=== PATIENT | female | born 1990 | race Caucasian/White ===

== ENCOUNTER 2022-05-05 07:08 | Emergency (ER) | payer MEDICAID, SELFPAY ==
--- NOTE | ~2022-05-05 | XR_ITS ---
EXAMINATION: XR ANKLE, RIGHT CLINICAL INFORMATION: Fall. Pain. COMPARISON: None TECHNIQUE: AP, lateral, and mortise views of the right ankle. FINDINGS: The bones and soft tissues are normal. No fracture. Alignment is anatomic. Joint spaces are maintained. No joint effusion. XR/XR ankle RT min 3V IMPRESSION: Normal right ankle.
--- NOTE | 2022-05-05 07:24 | ED_ITS ---
HPI - Extremity Injury (Lower) General Chief Complaint: Extremity Injury, Lower Stated Complaint: fracture of right ankle Time Seen by Provider: 05/05/22 07:14 Source: patient Mode of arrival: EMS History of Present Illness HPI Narrative: 31-year-old female with history of asthma presents via EMS after she reportedly fell down the stairs while carrying her child and states that the end of her toes caught on the stairs and she states I have not been able to movement since . She reports she still has sensation. She has no other complaints at this time. Related Data Previous Rx's Medication Instructions Recorded ketorolac 10 mg tablet 10 mg PO Q6H PRN pain 5 days #20 05/05/22 tabs Allergies Allergy/AdvReac Type Severity Reaction Status Date / Time strawberry [STRAWBERRY] Allergy Severe HIVES Unverified 06/08/20 18:27 strawberries Allergy Unknown hives Uncoded 10/06/19 00:00 [place] Flavor Allergy Unknown Uncoded 10/01/19 00:00 Review of Systems Review of Systems: Pertinent positives and negatives as stated in HPI 10 point review of systems is otherwise negative. PMFSH Past Medical History Source: nursing notes reviewed Social History Social History Advance Directives: No Advance Directives Information Provided: Yes Physical Exam Vital Signs: Vital Signs: BMI result Body Mass Index 28.1 VITAL SIGNS: Reviewed. GENERAL: Well developed, well nourished, in Moderate distress. HEAD: Normocephalic/atraumatic EYES: PERRLA, EOMI EARS: Ext canals without abnormality OROPHARYNX: no oral lesions noted, posterior pharynx clear LUNGS: Normal breath sounds. No adventitious sounds or accessory muscle use. CARDIOVASCULAR: Regular rate and rhythm without noted murmurs ABDOMEN: Soft, non-tender, non-distended with bowel sounds. PELVIS: stable, nontender MUSCULOSKELETAL: No tenderness, deformities, or effusions noted on gross inspection. EXTREMITIES: No cyanosis, clubbing or edema; RIGHT LOWER EXTREMITY: foot is in a plantar flexed position, there are abrasions on the anterior aspect, strong palpable DP/ PT, sensation is intact, toes were able to be with old, Barvo splint is in place, capillary refill is less than 3 seconds.. SKIN: Inspection of the skin reveals no rashes NEUROLOGIC: Alert and oriented x 4. Strength and sensation to light touch were grossly intact x 4. Course Course Course Narrative: 31-year-old female with history and clinical presentation consistent with suspected fracture dislocation of the right ankle, she will be provided with pain medication, imaging will be obtained. review of all investigations negative for evidence of acute fracture or dislocation, foot remains neurovascularly intact and pain is well controlled. Suspect significant ankle strain in the plantar flexion direction and patient will be Jeet wrapped in dorsiflexion and provided with crutches as well as a referral to follow-up with orthopedics. She is aware of this plan and the results. Discharge Plan Discharge Clinical Impression: Ankle sprain and strain Patient Disposition: Home, Self-Care Instructions: Ankle Sprain (ED), Crutch Instructions (ED), R.I.C.E. Treatment (ED) Additional Instructions: 1. Tylenol 1000 mg, orally, every 6 hours as needed for pain control. Do not exceed 4000 mg within 24 hours. 2. Recommend applying bacitracin to the abrasions on your ankle and otherwise cleansing with soap and water. 3. Ice, to unexposed skin, for 10-15 minutes, 3 to 4 times a day. 4. A referral for Orthopedics has been provided to you below, but you should also follow-up with your primary care provider by calling on Friday morning. Return to the ER for worsening symptoms. Prescriptions: New ketorolac 10 mg tablet 10 mg PO Q6H PRN (Reason: pain) 5 Days Qty: 20 0RF Rx Instructions: Patient has received Toradol in the emergency room. Referrals: Letty Fuentes MD [Primary Care Provider] - Arnie Muñoz MD [Physician] - Stand Alone Forms: Work/School Release
[2022-05-05 07:25] VITALS: BMI 28.1
[2022-05-05] MEDS: HYDROmorphone HCl 0.5 MG/0.5 ML SYRINGE 0.25 MG IVPUSH (07:42)
[2022-05-05] MEDS: Ketorolac Tromethamine 30 MG/ML VIAL 15 MG IVPUSH (07:42)
[2022-05-05] MEDS: Acetaminophen 325 MG TABLET 975 MG PO (07:43)
== END 2022-05-05 10:24 | disposition home or self-care (01) ==
PROVIDERS: Emergency Provider Student in an Organized Health Care Education/Training Program; PCP Internal Medicine
DX: S93.401A Sprain of unspecified ligament of right ankle, initial encounter (principal); M25.571 Pain in right ankle and joints of right foot; W10.9XXA Fall (on) (from) unspecified stairs and steps, initial encounter; Y93.9 Activity, unspecified; Y92.009 Unspecified place in unspecified non-institutional (private) residence as the place of occurrence of the external cause; Y99.9 Unspecified external cause status; Z79.899 Other long term (current) drug therapy
CPT/HCPCS: 73610; 96374; 96375; 99283; 99284; J1170; J1885

== ENCOUNTER 2022-05-13 11:08 | Emergency (ER) | payer MEDICAID, SELFPAY ==
[2022-05-13 11:18] VITALS: BP 120/69; PULSE 83; RESP 19; TEMP 36.1; O2SAT 98; BMI 29.6
[2022-05-13] MEDS: Fluorescein Sodium STRIP 1 STRIP EYE-LEFT (14:57)
[2022-05-13] MEDS: Tetracaine HCl/PF 0.5% Oph Sol 4 ML DROPS 1 DROP EYE-LEFT (14:57)
--- NOTE | 2022-05-13 14:59 | ED_ITS ---
HPI - Eye Problem General Chief complaint: Eye Problems Stated complaint: Swollen L eye/Ankle pain Time Seen by Provider: 05/13/22 14:49 Source: patient Mode of arrival: ambulatory Limitations: no limitations History of Present Illness HPI Narrative: Patient presents emergency department for evaluation of left eye pain. She states that this morning it was slightly crusted, but overall is painful and it feels like it is excessively watery. Denies any trauma or foreign body to the eye. Is not a contact lens wearer. Denies any foreign body sensation or itchiness. Denies any fevers or chills. Additionally, she states that she was seen here 1 week ago for an ankle sprain, she has not been able to follow-up with her primary care provider or Orthopedics at this time, she has a appointment with orthopedics in 1 week. She is asking for a return to work note stating she can be on light duty until further cleared. At this time she is ambulatory around the house without the use of crutches but any prolonged walking it is too painful and she requires the crutches Related Data Previous Rx's Medication Instructions Recorded ketorolac 10 mg tablet 10 mg PO Q6H PRN pain 5 days #20 05/05/22 tabs erythromycin 5 mg/gram (0.5 %) eye 1 appl ophthalmic-Left QID 5 days 05/13/22 ointment #3.5 grams Allergies Allergy/AdvReac Type Severity Reaction Status Date / Time strawberry [STRAWBERRY] Allergy Severe HIVES Unverified 06/08/20 18:27 strawberries Allergy Unknown hives Uncoded 10/06/19 00:00 [place] Flavor Allergy Unknown Uncoded 10/01/19 00:00 Review of Systems Review of Systems: Eye: Positive pain. Positive redness. Musculoskeletal: Positive ankle pain Yes all other systems are reviewed and are negative PMFSH Past Medical History Attestation statement: The following information was validated with the patient. Source: old records reviewed Social History Social History Advance Directives: No Advance Directives Information Provided: Yes Physical Exam Vital Signs: Vital Signs: Last Vital Signs Temp 97 F 05/13/22 11:18 Pulse 83 05/13/22 11:18 Resp 19 05/13/22 11:18 BP 120/69 05/13/22 11:18 Pulse Ox 98 05/13/22 11:18 O2 Del Method 05/13/22 11:18 BMI result Body Mass Index 29.6 Appearance: Alert.?Oriented to person, place and time. No acute distress.?Normal affect. Eyes: Pupils equal, round and reactive to light.? hordeolum to the left lower lid. Small area of fluorescein uptake ENT: Pharynx normal.?? Neck: Normal inspection.? Neck supple.?? CVS: Heart sounds normal. Normal heart rate and rhythm.? Pulses normal.?? Respiratory: No respiratory distress.? Lung sounds clear to auscultation bilaterally?? Abdomen: Soft and non-tender. Skin: Skin warm and dry.? Normal skin color.? Extremities: No lower extremity edema.? Neuro: Moves all extremities spontaneously. Sensation intact bilaterally. No motor deficits Ambulates with normal steady gait. Course Course Course Narrative: Patient is a 31-year-old female who presents to the emergency department for evaluation of left eye pain. Physical exam consistent with a hordeolum, there is a small area of fluorescein uptake on exam concerning for corneal abrasion. Discussed these findings with patient, advised warm moist compresses, gentle massage, antibiotic eyedrops, and outpatient follow-up with Ophthalmology. Not consistent with preseptal or orbital cellulitis. Discussed worrisome signs and symptoms to return back to the emergency department for. All questions were answered, and patient was discharged home in stable condition. Patient with a previously diagnosed sprain to the right ankle, advised outpatient follow-up with orthopedics as currently scheduled, provided with a light duty note for work until cleared by Orthopedics. MDM - Eye Problem Medical Records Attestation: I reviewed the patient's medical records. Discharge Plan Discharge Clinical Impression: Corneal abrasion, Hordeolum, Ankle sprain Patient Disposition: Home, Self-Care Instructions: Stye (ED), Corneal Abrasion (ED) Additional Instructions: As we discussed to have a stye to her left eye please apply warm moist compresses multiple times daily and gently massaged the eye. You have additionally been given a prescription for antibiotic eyedrops due to a corneal abrasion. 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 Regarding your ankle sprain please continue to follow-up with orthopedics in your primary care provider as you have scheduled Prescriptions: New erythromycin 5 mg/gram (0.5 %) ointment 1 appl ophthalmic-Left QID 5 Days Qty: 3.5 0RF No Action ketorolac 10 mg tablet 10 mg PO Q6H PRN (Reason: pain) 5 Days Qty: 20 0RF Rx Instructions: Patient has received Toradol in the emergency room. Referrals: Kaiden Blunt [Physician] - Stand Alone Forms: Work/School Release Interventions: ED Discharge Assessment Last Done: 05/13/22 15:45 Discharge Date/Time: 05/13/22 15:45
== END 2022-05-13 15:45 | disposition home or self-care (01) ==
PROVIDERS: Emergency Provider Emergency Medicine; PCP Internal Medicine
DX: Z02.79 Encounter for issue of other medical certificate (principal); H00.015 Hordeolum externum left lower eyelid; S05.02XA Injury of conjunctiva and corneal abrasion without foreign body, left eye, initial encounter; X58.XXXA Exposure to other specified factors, initial encounter; Y93.9 Activity, unspecified; Y92.9 Unspecified place or not applicable; Y99.9 Unspecified external cause status; S93.401D Sprain of unspecified ligament of right ankle, subsequent encounter; X58.XXXD Exposure to other specified factors, subsequent encounter
CPT/HCPCS: 99283

== ENCOUNTER → 2022-05-21 08:36 | Outpatient (BNVA) | payer MEDICAID, SELFPAY | PROVIDERS: PCP Internal Medicine; Visit Provider Physician Assistant | DX: S93.401A Sprain of unspecified ligament of right ankle, initial encounter (principal); W10.9XXA Fall (on) (from) unspecified stairs and steps, initial encounter; Y93.9 Activity, unspecified; Y92.9 Unspecified place or not applicable; Y99.9 Unspecified external cause status | CPT/HCPCS: 99202 ==

== ENCOUNTER → 2022-06-18 09:26 | Outpatient (BNVA) | payer OTHER, SELFPAY | PROVIDERS: PCP Internal Medicine; Visit Provider Physician Assistant | DX: S93.401A Sprain of unspecified ligament of right ankle, initial encounter (principal) | CPT/HCPCS: 99212 ==